=== PATIENT | male | born 1990 | race Caucasian/White ===

== ENCOUNTER 2017-04-17 21:48 | Emergency (ER) | payer OTHER ==
[~2017-04-17] VITALS: Ht 170.2 cm; Wt 79.4 kg
[~2017-04-17 21:48] MED LIST: CYCL10 PO; HYDACE5 PO; IBUP600 PO; IBUP800 PO; Keflex500 MG PO; MIRT15; NAPR500 PO; Naprosyn500 MG PO; Norco 5-325 Ta1 EACH PO; PENVK500 PO; Polytrim Eye Dr10 ML OD; Prednisone20 MG PO; Ultram50 MG PO
[2017-04-17] MEDS ORDERED: Robaxin-750750 MG PO (23:15)
[2017-04-17] MEDS ORDERED: IBUP600 PO (23:15)
== END 2017-04-17 23:30 | disposition home or self-care (01) ==
LOC: ER 21:48
DX: G89.29 Other chronic pain (principal); M54.5 Low back pain; Z79.899 Other long term (current) drug therapy; F17.200 Nicotine dependence, unspecified, uncomplicated
CPT/HCPCS: 96372; 99283; J1100; J1885

== ENCOUNTER → 2017-11-01 | Outpatient (CLI) | payer OTHER ==
[~2017-11-01] MED LIST changes: +Robaxin-750750 MG PO
[2017-11-03 05:12] LABS: HIV SCREEN 4TH GENERATION WRFX Non Reactive (Non Reactive)
[2017-11-03 08:17] LABS: HBSAG SCREEN Negative (Negative); HEP A AB, IGM Negative (Negative); HEP B CORE AB, IGM Negative (Negative); HEP C VIRUS AB 0.3 (0.0-0.9)
[2017-11-04 01:11] LABS: CHLAMYDIA TRACHOMATIS, NAA Negative (Negative); NEISSERIA GONORRHOEAE, NAA Negative (Negative)
== END | disposition home or self-care (01) ==
LOC: LAB SHORT 19:22 → LAB 19:22
PROVIDERS: Emergency Medicine
DX: N34.1 Nonspecific urethritis (principal); R53.83 Other fatigue; R30.0 Dysuria
CPT/HCPCS: 80074; 86592; 87389; 87491; 87591

== ENCOUNTER 2018-11-30 14:54 | Emergency (ER) | payer OTHER ==
[~2018-11-30] VITALS: Ht 170.2 cm; Wt 79.4 kg
== END 2018-11-30 15:44 | disposition home or self-care (01) ==
LOC: ER 14:54
DX: S91.332A Puncture wound without foreign body, left foot, initial encounter (principal); F17.200 Nicotine dependence, unspecified, uncomplicated; Z79.899 Other long term (current) drug therapy; W45.0XXA Nail entering through skin, initial encounter
CPT/HCPCS: 90471; 90714; 99283-25

== ENCOUNTER 2019-01-23 08:57 | Emergency (ER) | payer OTHER ==
[~2019-01-23] VITALS: Ht 170.2 cm; Wt 81.7 kg
[2019-01-23] MEDS ORDERED: Vistaril25 MG PO (10:17)
== END 2019-01-23 10:25 | disposition home or self-care (01) ==
LOC: ER 08:57
DX: F11.20 Opioid dependence, uncomplicated (principal); F41.9 Anxiety disorder, unspecified; F17.200 Nicotine dependence, unspecified, uncomplicated
CPT/HCPCS: 99283

== ENCOUNTER 2019-03-27 22:30 | Emergency (ER) | payer OTHER ==
[~2019-03-27 22:30] MED LIST changes: +Vistaril25 MG PO
== END 2019-03-27 23:28 | disposition left against medical advice (07) ==
LOC: ER 22:30
DX: Z53.21 Procedure and treatment not carried out due to patient leaving prior to being seen by health care provider (principal)